=== PATIENT | female | born 1980 | race African-American/Black ===

== ENCOUNTER 2022-08-24 19:54 | Emergency (ER) | payer OTHER ==
[2022-08-24 19:59] VITALS: BP 167/115; PULSE 90; RESP 19; TEMP 98.6; BMI 33.9
[2022-08-24] MEDS ORDERED: SODIUM CHLORIDE 0.9% 500 ML INFUS.BAG IV ONE (21:21)
[2022-08-24] MEDS ORDERED: KETOROLAC TROMETHAMINE 15 MG/ML VIAL IVPUSH ONE (21:21)
[2022-08-24] MEDS ORDERED: KETOROLAC TROMETHAMINE 15 MG/ML VIAL IM ONE (21:31)
[2022-08-24] MEDS ORDERED: KETOROLAC TROMETHAMINE 15 MG/ML VIAL ONE (21:33)
[2022-08-24 22:00] LABS: PH,URINE 6.5 (5.0-8.0); URINE APPEARANCE CLEAR; URINE BILIRUBIN NEGATIVE (NEGATIVE); URINE COLOR YELLOW; URINE GLUCOSE (UA) 1+ (NEGATIVE); URINE KETONE NEGATIVE (NEGATIVE); URINE LEUK ESTERASE NEGATIVE (NEGATIVE); URINE NITRITE NEGATIVE (NEGATIVE); URINE PROTEIN NEGATIVE (NEGATIVE); URINE UROBILINOGEN 0.2 mg/dL (0.2-1.0)
[2022-08-24 22:04] LABS: HCG,QUALITATIVE URINE Negative
[2022-08-24] MEDS ORDERED: LIDOCAINE 5% TOPICAL PATCH ONE (23:57)
== END 2022-08-25 | disposition home or self-care (01) ==
LOC: JERFT 19:54
PROC: 3E023GC Introduction of Other Therapeutic Substance into Muscle, Percutaneous Approach (ICD-10-PCS; principal; 2022-08-24)
DX: M54.32 Sciatica, left side (principal)
CPT/HCPCS: 81003; 84703; 87086; 87186; 99284-25